=== PATIENT | female | born 1980 | race Caucasian/White ===

== ENCOUNTER 2019-07-08 03:46 | Emergency (ER) | payer OTHER, SELFPAY ==
[2019-07-08 04:02] VITALS: BP 113/73; PULSE 102; RESP 17; TEMP 36.7; O2SAT 93; BMI 28.3
--- NOTE | 2019-07-08 04:07 | ED_ITS ---
Entered by Gladys Cartagena, acting as scribe for Teresita Luke HPI - Alcohol General: Chief Complaint: Seizure Stated Complaint: SEIZURE/ETOH Time Seen by Provider: 07/08/19 04:00 Source: patient and EMS Mode of arrival: EMS History of Present Illness: HPI narrative: 38 y/o female presents to the ED for possible seizure. EMS states she has a hx of seizures and has not been taking her medications for the past few months due to monetary issues. 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 Pt is a very poor historian and cannot even recall how tall she is. She does not know what happened or why she is here. When asked if she fell or had a seizure, pt states she does not know. All she knows is that she thinks she was sitting on a bar stool and then she was on the floor. Pt is very emotional and reports alot of home life issues. She denies SI/HI at this time. 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 Chronic alcohol use: Yes Associated symptoms: Deny abdominal pain, diaphoresis, hematemesis, melena, nausea, syncope or vomiting Review of Systems General: Reports: other (negative unless marked) Const: Denies: fever, chills, body aches, fatigue, malaise or diaphoresis Eyes: Denies: change in vision or blurry vision ENMT: Denies: throat pain, painful swallowing, hoarseness, ear pain, ear discharge, Change in hearing or nasal discharge Card: Denies: chest pain, palpitations, irregular heart rhythm, syncope, pre- syncope, shortness of breath on exertion or shortness of breath when lying down Resp: Denies: shortness of breath, productive cough, non-productive cough, wheezing, coughing up blood or chest congestion GI: Denies: abdominal pain, nausea, vomiting, vomiting blood, coffee grounds in vomit, diarrhea, constipation, cramping, blood in stool or black tarry stool : Denies: flank pain, painful urination, urinary frequency, urinary urgency, decreased urine ouput, urinary incontinence or blood in urine Musc: Denies: neck pain, back pain, extremity pain, extremity swelling, joint pain, joint swelling, joint warmth or joint stiffness Skin/Breast: Denies: rash, skin tenderness or yellow skin Endo: Denies: excessive thirst, tired all the time, cold intolerance, excessive sweating, flushing or hot flashes Marcelo/Lymph: Denies: easy bruising, easy bleeding, petechiae or enlarged lymph nodes All/Imm: Denies: hives, throat swelling, tongue swelling, facial swelling or acute wheezing PFSH ED PFSH: Social History Smoking and tobacco status: current every day smoker Alcohol intake: never Physical Exam Const: ORIENTATION/CONSCIOUSNESS: Yes awake HENMT: COMMON NORMALS: normocephalic, head/scalp atraumatic, hearing grossly normal bilaterally, external ears normal, EAC's normal, external nose normal and moist oral mucous membranes HEAD & SCALP: normal to inspection, normocephalic and atraumatic FACE & SINUS: normal facial exam and face symmetric NOSE: external nose normal and nares normal EXTERNAL EAR: Yes external ears normal EXTERNAL AUDITORY CANAL: EAC's normal MOUTH: oral and palatal mucosa normal and tongue normal Eye: COMMON NORMALS: PERRL, EOMs intact bilaterally, conjunctivae normal and no scleral icterus GENERAL EYE: normal appearance of both eyes and normal light reflex CONJUNCTIVA: Yes conjunctivae normal SCLERA: sclerae normal CORNEA: Yes corneas normal PUPIL: Yes PERRL DIRECT OPHTHALMOSCOPY: Yes normal light reflex Neck/C-Spine: COMMON NORMALS: full ROM, no lymphadenopathy, supple, no meningeal signs and no JVD GENERAL: Yes normal visual inspection and Yes trachea midline CERVICAL SPINE: Yes cervical ROM normal Chest: COMMONS NORMALS: inspection of chest normal and palpation of chest normal Resp: COMMON NORMALS: normal respiratory effort, no retractions, no use of accessory muscles and clear to auscultation bilaterally EFFORT & INSPECTION: Yes able to speak in complete sentences AUSCULTATION: clear to auscultation bilaterally Cardio: COMMON NORMALS: no JVD, regular rate, regular rhythm, S1 normal heart sound, S2 normal heart sound, no gallops, no clicks, no murmurs and no rub JUGULAR VENOUS DISTENTION: no JVD RATE: regular rate RHYTHM: regular rhythm HEART SOUNDS: S1 normal and S2 normal GI: COMMON NORMALS: soft to palpation, non-tender, no hepatosplenomegaly and no masses INSPECTION: Yes normal to inspection PALPATION: Yes soft and Yes no hepatosplenomegaly : COMMON NORMALS: Yes no CVA tenderness BLADDER/KIDNEY EXAM: Yes no CVA tenderness Back/Pelvis: COMMON NORMALS: no CVA tenderness, thoracic and lumbar spine normal to inspection, no thoracic nor lumbar tenderness and thoraco-lumbar ROM normal Extremity: COMMON NORMALS: normal to inspection, full ROM, normal capillary refill, no joint enlargement, no clubbing, cyanosis or edema and no calf tenderness Neuro: COMMON NORMALS: no sensory deficits noted MENINGEAL SIGNS: Yes no meningeal signs Skin: COMMON NORMALS: no rashes or lesions noted, skin turgor normal, no jaundice, no petechiae and no mottling GENERAL SKIN EXAM: no rashes or lesions noted and turgor normal Course Vital Signs: Vital signs: Vital Signs Temperature 100.5 F H 07/08/19 05:39 Pulse Rate 102 H 07/08/19 04:02 Respiratory Rate 17 07/08/19 04:02 Blood Pressure 113/73 07/08/19 04:02 Pulse Oximetry 93 07/08/19 04:02 MDM - Alcohol MDM Narrative: Medical decision making narrative: Tatum comes in very depressed and has been drinking. She has significant marital problems and financial problems. She wants to get help. She is not suicidal or homicidal. I reviewed the case in full with Dr. Schuster he is agreeable to admission. I will go ahead and admit her to the [facility] for stabilization. Lab Data: Labs: Lab Results 07/08/19 07/08/19 07/08/19 Range/Units 04:00 04:00 04:50 WBC (4.0-10.0) 10^3/ uL RBC (4.1-5.3) 10^6/u L Hgb (11.5-15.3) g/dL Hct (37.0-47.0) % MCV (81-99) fL MCH (28.0-34.0) pg MCHC (30.0-36.0) g/dL RDW (12.1-15.1) % Plt Count (130-400) 10^3/c mm MPV (7.4-10.4) fL Neut % (Auto) % Lymph % (Auto) % [place] % (Auto) % Eos % (Auto) % Baso % (Auto) % Neut # (Auto) (1.8-7.7) 10^3/u L Lymph # (Auto) (0.8-4.8) 10^3/u L Cabell # (Auto) (0.2-0.9) 10^3/u L Eos # (Auto) (0.0-0.8) 10^3/u L Baso # (Auto) (0.0-0.1) 10^3/u L Nucleated RBC % (a uto) % Nucleated RBCs # /100WBC Sodium 143 (136-145) mmol/L Potassium 3.9 (3.5-5.1) mmol/L Chloride 105 (98-107) mmol/L Carbon Dioxide 20 L (22-29) mmol/L Anion Gap 21.9 H (5-19) BUN 7 (6-20) mg/dL Creatinine 0.5 (0.5-0.9) mg/dL GFR Calculation 138.1 H (90-130) mL/min Glucose 139 H (65-115) mg/dL Calcium 9.6 (8.5-10.5) mg/dL Magnesium 2.3 (1.7-2.3) mg/dL Total Bilirubin 0.2 (0.15-1.2) mg/dL AST 9 (0-32) U/L ALT 9 (0-33) U/L Alkaline Phosphata se 80 (35-105) IU/L Total Protein 7.8 (6.6-8.7) g/dL Albumin 4.0 (3.5-5.2) g/dL Globulin 3.8 (1.3-4.6) g/dL HCG, Qual (Negative) Urine Color Yellow (Yellow) Urine Appearance Hazy A (CLEAR) Urine pH 6 (5-7) Ur Specific Gravit y 1.005 (1.005-1.030) Urine Protein Neg (Negative) Urine Glucose (UA) Norm (Normal) Urine Ketones Negative (Negative) Urine Blood Neg (Negative) Urine Nitrate Negative (Negative) Urine Bilirubin Neg (NEGATIVE) Urine Urobilinogen Norm (Negative) mg/dL Ur Leukocyte Nupur ase Negative (Negative) Urine RBC 0-4 H (0-2) /hpf Urine WBC None (0-5) /hpf Ur Squamous Epith Cells 0-4 H (0-5) Urine Bacteria 2+ H (NONE) Urine Opiates Scre en Negative (Negative) ng/mL Ur Barbiturates Sc reen Negative (Negative) ng/mL Phenytoin (10-20) ug/mL Valproic Acid (50-100) mcg/mL Carbamazepine (4.0-12.0) ug/mL Ur Phencyclidine S crn Negative (Negative) ng/mL Ur Amphetamines Sc reen Negative (Negative) ng/mL U Benzodiazepines Scrn Negative (Negative) ng/mL [place] (0.6-1.2) mmol/L Urine Cocaine Scre en Negative (Negative) ng/mL U Marijuana (THC) Screen Negative (Negative) ng/mL Ethyl Alcohol 190 H (0-10) mg/dL 07/08/19 07/08/19 07/08/19 Range/Units 04:50 04:50 04:50 WBC (4.0-10.0) 10^3/ uL RBC (4.1-5.3) 10^6/u L Hgb (11.5-15.3) g/dL Hct (37.0-47.0) % MCV (81-99) fL MCH (28.0-34.0) pg MCHC (30.0-36.0) g/dL RDW (12.1-15.1) % Plt Count (130-400) 10^3/c mm MPV (7.4-10.4) fL Neut % (Auto) % Lymph % (Auto) % Cabell % (Auto) % Eos % (Auto) % Baso % (Auto) % Neut # (Auto) (1.8-7.7) 10^3/u L Lymph # (Auto) (0.8-4.8) 10^3/u L Cabell # (Auto) (0.2-0.9) 10^3/u L Eos # (Auto) (0.0-0.8) 10^3/u L Baso # (Auto) (0.0-0.1) 10^3/u L Nucleated RBC % (a uto) % Nucleated RBCs # /100WBC Sodium (136-145) mmol/L Potassium (3.5-5.1) mmol/L Chloride (98-107) mmol/L Carbon Dioxide (22-29) mmol/L Anion Gap (5-19) BUN (6-20) mg/dL Creatinine (0.5-0.9) mg/dL GFR Calculation (90-130) mL/min Glucose (65-115) mg/dL Calcium (8.5-10.5) mg/dL Magnesium (1.7-2.3) mg/dL Total Bilirubin (0.15-1.2) mg/dL AST (0-32) U/L ALT (0-33) U/L Alkaline Phosphata se (35-105) IU/L Total Protein (6.6-8.7) g/dL Albumin (3.5-5.2) g/dL Globulin (1.3-4.6) g/dL HCG, Qual Negative (Negative) Urine Color (Yellow) Urine Appearance (CLEAR) Urine pH (5-7) Ur Specific Gravit y (1.005-1.030) Urine Protein (Negative) Urine Glucose (UA) (Normal) Urine Ketones (Negative) Urine Blood (Negative) Urine Nitrate (Negative) Urine Bilirubin (NEGATIVE) Urine Urobilinogen (Negative) mg/dL Ur Leukocyte Nupur ase (Negative) Urine RBC (0-2) /hpf Urine WBC (0-5) /hpf Ur Squamous Epith Cells (0-5) Urine Bacteria (NONE) Urine Opiates Scre en (Negative) ng/mL Ur Barbiturates Sc reen (Negative) ng/mL Phenytoin 1.0 L (10-20) ug/mL Valproic Acid 2.8 L (50-100) mcg/mL Carbamazepine 2.0 L (4.0-12.0) ug/mL Ur Phencyclidine S crn (Negative) ng/mL Ur Amphetamines Sc reen (Negative) ng/mL U Benzodiazepines Scrn (Negative) ng/mL [place] 0.1 L (0.6-1.2) mmol/L Urine Cocaine Scre en (Negative) ng/mL U Marijuana (THC) Screen (Negative) ng/mL Ethyl Alcohol (0-10) mg/dL 07/08/19 Range/Units 05:39 WBC 9.4 (4.0-10.0) 10^3/ uL RBC 4.99 (4.1-5.3) 10^6/u L Hgb 13.4 (11.5-15.3) g/dL Hct 41.5 (37.0-47.0) % MCV 83.2 (81-99) fL MCH 26.9 L (28.0-34.0) pg MCHC 32.3 (30.0-36.0) g/dL RDW 17.1 H (12.1-15.1) % Plt Count 300 (130-400) 10^3/c mm MPV 10.9 H (7.4-10.4) fL Neut % (Auto) 56.4 % Lymph % (Auto) 36.8 % Cabell % (Auto) 4.9 % Eos % (Auto) 1.3 % Baso % (Auto) 0.3 % Neut # (Auto) 5.3 (1.8-7.7) 10^3/u L Lymph # (Auto) 3.5 (0.8-4.8) 10^3/u L Cabell # (Auto) 0.5 (0.2-0.9) 10^3/u L Eos # (Auto) 0.1 (0.0-0.8) 10^3/u L Baso # (Auto) 0.0 (0.0-0.1) 10^3/u L Nucleated RBC % (a uto) 0 % Nucleated RBCs # 0.0 /100WBC Sodium (136-145) mmol/L Potassium (3.5-5.1) mmol/L Chloride (98-107) mmol/L Carbon Dioxide (22-29) mmol/L Anion Gap (5-19) BUN (6-20) mg/dL Creatinine (0.5-0.9) mg/dL GFR Calculation (90-130) mL/min Glucose (65-115) mg/dL Calcium (8.5-10.5) mg/dL Magnesium (1.7-2.3) mg/dL Total Bilirubin (0.15-1.2) mg/dL AST (0-32) U/L ALT (0-33) U/L Alkaline Phosphata se (35-105) IU/L Total Protein (6.6-8.7) g/dL Albumin (3.5-5.2) g/dL Globulin (1.3-4.6) g/dL HCG, Qual (Negative) Urine Color (Yellow) Urine Appearance (CLEAR) Urine pH (5-7) Ur Specific Gravit y (1.005-1.030) Urine Protein (Negative) Urine Glucose (UA) (Normal) Urine Ketones (Negative) Urine Blood (Negative) Urine Nitrate (Negative) Urine Bilirubin (NEGATIVE) Urine Urobilinogen (Negative) mg/dL Ur Leukocyte Nupur ase (Negative) Urine RBC (0-2) /hpf Urine WBC (0-5) /hpf Ur Squamous Epith Cells (0-5) Urine Bacteria (NONE) Urine Opiates Scre en (Negative) ng/mL Ur Barbiturates Sc reen (Negative) ng/mL Phenytoin (10-20) ug/mL Valproic Acid (50-100) mcg/mL Carbamazepine (4.0-12.0) ug/mL Ur Phencyclidine S crn (Negative) ng/mL Ur Amphetamines Sc reen (Negative) ng/mL U Benzodiazepines Scrn (Negative) ng/mL [place] (0.6-1.2) mmol/L Urine Cocaine Scre en (Negative) ng/mL U Marijuana (THC) Screen (Negative) ng/mL Ethyl Alcohol (0-10) mg/dL Imaging Data^: CXR: My impression: No acute cardiopulmonary findings. CT Spine: Radiologist's impression: [place] [address] CT Scan Report Signed Patient: Tatum Francois #: [id number] : 1980Acct#:[id number] Age/Sex: 38 / FADM Date: 07/08/19 Loc: ERRoom/Bed: Attending Dr: Ordering Provider/Ordering MD: Teresita Luke DO Date of Service: 07/08/19 Procedure(s): CT cervical spin wo con* [id number] Accession Number(s): [id number] Report Number: [id number] PROCEDURE INFORMATION: Exam: CT Cervical Spine Without Contrast Exam date and time: 07/08/2019 4:10 AM Age: 38 years old Clinical indication: Neck pain TECHNIQUE: Imaging protocol: Computed tomography images of the cervical spine without contrast. Total DLP: 875.26 mGy-cm Radiation optimization: All CT scans at this facility use at least one of these dose optimization techniques: automated exposure control; mA and/or kV adjustment per patient size (includes targeted exams where dose is matched to clinical indication); or iterative reconstruction. COMPARISON: No relevant prior studies available. FINDINGS: Vertebrae: No fracture or malalignment. Minimal mid cervical kyphosis. Discs/Spinal canal/Neural foramina: No disc narrowing or canal stenosis. Degeneration of the right C5-C6 uncovertebral joint causing moderate right foraminal stenosis. Soft tissues: Unremarkable. Sinuses: Slightly nodular appearance of the mild mucosal thickening in the inferior maxillary sinuses. Other sinus disease detailed in the head CT report. Lungs: Patchy minimal haziness in the lung apices evident despite motion, questionably due to hypoaeration. CT/CT cervical spin wo con* [id number] IMPRESSION: No acute bony disease. Right uncovertebral joint degeneration at C5-C6 causing moderate right foraminal stenosis. Other findings detailed above. Radiation Dose CTDIVOL = (mGy): DLP = 875.26 (mGy-cm) CT Head: Radiologist's impression: [place] [address] CT Scan Report Signed Patient: Tatum Francois #: [id number] : 1980Acct#:[id number] Age/Sex: 38 / FADM Date: 07/08/19 Loc: ERRoom/Bed: Attending Dr: Ordering Provider/Ordering MD: Teresita Luke DO Date of Service: 07/08/19 Procedure(s): CT head wo con* [id number] Accession Number(s): [id number] Report Number: [id number] PROCEDURE INFORMATION: Exam: CT Head Without Contrast Exam date and time: 07/08/2019 4:10 AM Age: 38 years old Clinical indication: Pain; Altered mental status/memory loss; Confusion or disorientation; Headache not specified; Additional info: Vivas/ams TECHNIQUE: Imaging protocol: Computed tomography of the head without contrast. Total DLP: 1800.65 mGy-cm Radiation optimization: All CT scans at this facility use at least one of these dose optimization techniques: automated exposure control; mA and/or kV adjustment per patient size (includes targeted exams where dose is matched to clinical indication); or iterative reconstruction. COMPARISON: No relevant prior studies available. FINDINGS: Limitations: Motion artifacts. Brain: No suggestion of edema in the brain. One very small calcification in the left frontal white matter. No positive mass effect around the calcification or elsewhere. No hemorrhage. Ventricles: No ventriculomegaly. Bones/joints: Unremarkable. No acute fracture. Sinuses: Small mucous retention cyst in the left maxillary sinus. Mucosal thickening in several paranasal sinuses. No air-fluid levels. Mastoid air cells: Unremarkable mastoids. Soft tissues: Unremarkable. CT/CT head wo con* [id number] IMPRESSION: No acute findings. Nonspecific very small calcification in the left frontal white matter. Chronic sinus disease detailed above. Radiation Dose CTDIVOL = (mGy): DLP = 1800.65 (mGy-cm) Discharge Plan Discharge Patient Disposition: Placed in Observation Admit Provider: Francisco Schuster Clinical Impression: Depression, Alcohol intoxication Condition: Stable Interventions: ED Discharge Assessment Last Done: 07/08/19 06:28 Coding Level of Care Code ED Spout Liner for Chg Fwd Exam Comprehensive The documentation recorded by the Osiel salazar Ashley, accurately reflects the service I personally performed and the decisions made by Ti love Eli N Jul 08, 2019 03:46
--- NOTE | 2019-07-08 04:09 | XR_ITS ---
WS: [id number] Portable AP upright chest, 07/08/2019 Clinical Data: cough Comparison: Portable chest, 09/20/2017. Findings: No nodules, masses or effusions are seen. The heart is normal. The pulmonary vascularity is not increased. No pneumonia or pneumothorax is seen. XR/XR chest 1V portable [id number] Impression: Negative chest.
[2019-07-08] MEDS: folic acid 1 MG, multivitamin inj 10 ML, thiamine 100 MG in sodium chloride 0.9% 1,000 ML 252.8 MG IV (04:30)
[2019-07-08 05:00] LABS: Bilirubin Urine Neg (NEGATIVE); Blood Urine Neg (Negative); Glucose Urine UA Norm (Normal); Ketones Urine Negative (Negative); Leukocyte Esterase Urine Negative (Negative); Nitrate Urine Negative (Negative); Protein Urine Neg (Negative); Specific Gravity, Urine 1.005 (1.005-1.030); Urine Appearance Hazy (CLEAR); Urine Color Yellow (Yellow); Urobilinogen Urine Norm (Negative); pH Urine 6 (5-7)
[2019-07-08 05:01] LABS: Add Urine Culture? Yes; Bacteria Urine 2+; RBC Urine 0-4 /hpf (0-2); Squamous Epithelial Cell Urine 0-4 (0-5)
[2019-07-08 05:15] LABS: Amphetamines Screen Urine Negative (Negative); Barbiturates Screen Urine Negative (Negative); Benzodiazepines Screen Urine Negative (Negative); Cocaine Screen Urine Negative (Negative); Opiate Screen Urine Negative (Negative); PCP Screen Urine Negative (Negative); THC Screen Urine Negative (Negative)
[2019-07-08 05:18] LABS: HCG, Serum Qual Negative (Negative)
[2019-07-08 05:21] LABS: Alanine Aminotransferase 9 U/L (0-33); Alcohol Level 190 mg/dL (0-10); Alkaline Phosphatase 80 IU/L (35-105); Anion Gap 21.9 (5-19); Aspartate Amino Transferase 9 U/L (0-32); Blood Urea Nitrogen 7 mg/dL (6-20); Calcium 9.6 mg/dL (8.5-10.5); Carbon Dioxide 20 mmol/L (22-29); Chloride 105 mmol/L (98-107); Creatinine Clr Calc Pharmacy 145.6319; Globulin 3.8 g/dL (1.3-4.6); Glomerular Filtration Rate 138.1 mL/min (90-130); Glucose 139 mg/dL (65-115); Magnesium 2.3 mg/dL (1.7-2.3); Potassium 3.9 mmol/L (3.5-5.1); Sodium 143 mmol/L (136-145); Total Bilirubin 0.2 mg/dL (0.15-1.2); Total Protein 7.8 g/dL (6.6-8.7)
[2019-07-08 05:39] VITALS: TEMP 38.1
[2019-07-08 06:00] LABS: Basophils % 0.3 %; Eosinophils # 0.1 10^3/uL (0.0-0.8); Eosinophils % 1.3 %; Hematocrit 41.5 % (37.0-47.0); Hemoglobin 13.4 g/dL (11.5-15.3); Lymphocytes # 3.5 10^3/uL (0.8-4.8); Lymphocytes % 36.8 %; Mean Corpuscular HGB Conc 32.3 g/dL (30.0-36.0); Mean Corpuscular Hemoglobin 26.9 pg (28.0-34.0); Mean Corpuscular Volume 83.2 fL (81-99); Mean Platelet Volume 10.9 fL (7.4-10.4); Monocytes # 0.5 10^3/uL (0.2-0.9); Monocytes % 4.9 %; Neutrophils # 5.3 10^3/uL (1.8-7.7); Neutrophils % 56.4 %; Nucleated Red Blood Cells % 0 %; Platelet Count 300 10^3/cmm (130-400); Red Blood Count 4.99 10^6/uL (4.1-5.3); Red Cell Distribution Width 17.1 % (12.1-15.1); White Blood Count 9.4 10^3/uL (4.0-10.0)
[2019-07-08 06:40] LABS: Acetaminophen < 5.0 ug/mL (10-30); Salicylate < 0.3 mg/dL (3-10)
[2019-07-08 06:41] LABS: Carbamazepine Tegretol < 2.0 ug/mL (4.0-12.0); Valproic Acid Level < 2.8 mcg/mL (50-100)
--- NOTE | 2019-07-08 06:46 | PC.NURSE ---
Pt room empty when security attempted to transfer pt to NPU. After searching ED, security found pt on camera leaving the room at 0619 and in the parking lot @ 0620. Further inspection of pt's room reveals pt had pulled IV out. NPU notified of pt elopement
[2019-07-08 06:50] LABS: Lithium < 0.1 mmol/L (0.6-1.2)
== END 2019-07-08 06:20 | disposition home or self-care (01) | DRG 897 ==
LOC: ER 06:28 → NP 06:29
PROVIDERS: Emergency Provider Emergency Medicine; Family Provider Family Medicine; PCP Family Medicine; Visit Provider Psychiatry & Neurology Psychiatry
DX: F10.129 Alcohol abuse with intoxication, unspecified (principal); G40.909 Epilepsy, unspecified, not intractable, without status epilepticus; F17.210 Nicotine dependence, cigarettes, uncomplicated; F32.9 Major depressive disorder, single episode, unspecified; Y90.6 Blood alcohol level of 120-199 mg/100 ml
CPT/HCPCS: 70450; 71045; 72125; 80053; 80156; 80164; 80178; 80185; 80307; 81001; 83735; 84703; 85025; 87086; 96365; 96366; 99283; 99284; J1953; J3411; J3490; J7030

== ENCOUNTER 2020-02-01 20:51 | Emergency (ER) | payer SELFPAY ==
[2020-02-01 21:01] VITALS: BP 143/92; PULSE 93; RESP 18; TEMP 36.5; O2SAT 96; BMI 29.2
--- NOTE | 2020-02-01 21:07 | XRR_ITS ---
PROCEDURE INFORMATION: Exam: XR Right Knee Exam date and time: 02/01/2020 9:29 PM Age: 39 years old Clinical indication: Injury or trauma; Fall; Initial encounter; Blunt trauma; Injury date: 02/01/20; Injury details: Fell while skating, right knee pain; Additional info: Fall with pain TECHNIQUE: Imaging protocol: XR Right knee. Views: Frontal, lateral, and oblique views. COMPARISON: No relevant prior studies available. FINDINGS: Bones/joints: Moderate knee joint effusion. No acute bony abnormality identified. Soft tissues: A quadriceps tendon enthesis of the superior pole of the patella is present. XR/XR knee RT 3V* [id number] IMPRESSION: 1. Moderate knee joint effusion. 2. No acute bony injury identified.
--- NOTE | 2020-02-01 21:08 | W.ED.FALL ---
HPI - Fall General: Chief Complaint: Fall Stated Complaint: FALL, LEG PAIN Time Seen by Provider: 02/01/20 21:02 History of Present Illness: HPI Narrative: Patient is a 39-year-old female comes to the ED with injury to right knee. Patient says injury occurred just prior to arrival. Patient was using roller skates and fell and her right knee hit the ground. Caused an abrasion of the skin on her right knee. She also feels some pain in the back of her knee when she bears weight on it. Pain is is rated a 5 out of 10 currently. Patient is able to ambulate. She says her last tetanus shot was within the last 5 years. Denies any other injury or trauma after fall. Patient has not taken any Tylenol or ibuprofen before arriving to the ED. Patient says she does not want any pain meds while here in the ED. Associated symptoms-after fall: Denies abdominal pain, chest pain, headache(s), hematuria or neck pain Review of Systems Const: Denies: fever(s), chills or fatigue Eyes: Denies: change in vision or eye discomfort ENMT: Denies: throat pain, odynophagia, nasal discharge or nasal congestion Card: Denies: chest pain, palpitations, edema, swelling of feet/ankles, dyspnea on exertion or orthopnea Resp: Denies: dyspnea, productive cough or non-productive cough GI: Denies: abdominal pain, nausea, vomiting, diarrhea, constipation or hematochezia : Denies: flank pain, dysuria or hematuria Musc: Reports: extremity pain (Right knee pain); Denies: neck pain, back pain or extremity swelling Skin/Breast: Reports: new lesions (Superficial abrasion on right knee.); Denies: rash Neuro: Denies: headache(s), numbness in extremities or weakness in extremities [facility] ED PFSH: Social History Smoking and tobacco status: current every day smoker Alcohol intake: never Physical Exam Const: COMMON NORMALS: no acute distress, patient oriented x3, healthy appearing and alert GENERAL APPEARANCE: cooperative and comfortable HENMT: COMMON NORMALS: normocephalic HEAD & SCALP: normocephalic MOUTH: Normal oral and palatal mucosa present THROAT: posterior oropharynx normal and uvula midline Neck/C-Spine: COMMON NORMALS: supple GENERAL: Yes normal visual inspection Resp: COMMON NORMALS: normal respiratory effort, No retractions, No use of accessory muscles and clear to auscultation bilaterally AUSCULTATION: clear to auscultation bilaterally Cardio: COMMON NORMALS: regular rate, regular rhythm, S1 normal heart sound present, S2 normal heart sound present, No gallops present (Cardio), No clicks present (Cardio), No murmurs present (Cardio) and Peripheral pulses 2+ throughout RATE: regular rate RHYTHM: regular rhythm HEART SOUNDS: S1 normal heart sound present and S2 normal heart sound present PERIPHERAL PULSES: Peripheral pulses 2+ throughout GI: COMMON NORMALS: Normal to inspection, nondistended, normoactive bowel sounds present, Soft to palpation, non-tender and no masses PALPATION: Yes Soft to palpation : COMMON NORMALS: Yes no CVA tenderness BLADDER/KIDNEY EXAM: Yes no CVA tenderness Back/Pelvis: COMMON NORMALS: no CVA tenderness Extremity: GENERAL: Yes normal exam except as noted RIGHT LOWER EXTREMITY: Yes knee joint Right knee: Yes inspection ( superficial abrasion on right knee.), Yes palpation (Pain upon palpation on the posterior aspect of knee.), Yes ROM (Fall with pain.) and Yes neurovascular exam (Intact, pedal pulse 2+.) Neuro: COMMON NORMALS: patient oriented x3 and moves all extremities SENSORIUM/ORIENTATION: Yes alert Skin: GENERAL SKIN EXAM: dry skin TRAUMA: abrasion (Superficial abrasion on right knee knee.) Course Vital Signs: Vital signs: Vital Signs Temperature 97.7 F 02/01/20 21:01 Pulse Rate 88 02/01/20 22:18 Respiratory Rate 18 02/01/20 22:18 Blood Pressure 125/63 02/01/20 22:18 Pulse Oximetry 97 02/01/20 22:18 MDM - Fall MDM Narrative: Medical decision making narrative: Patient is a 39-year-old female comes to the ED with fall and injury to her right knee. Patient has a superficial abrasion to right knee and some tenderness upon palpation to the posterior aspect of right knee. Patient is able to ambulate and bear weight on right knee. Pedal pulse 2+ and neurovascular intact distally to injury. Right knee x-ray showed no acute findings or fractures seen. Patient was given crutches and told to nonweightbearing on right knee for the next couple days to help with healing, then start to weight-bear as tolerated and increase activity. Abrasion was irrigated cleaned and bandaged by nurse before discharge. Patient has had tetanus within the last 5 years so she did not get an updated tetanus shot while here in the ED. She was told to follow-up with her PCP within the next week to reevaluate right knee pain. Rest ice elevate and take ibuprofen for pain. Return to ED precautions given. Patient understood and agreed with plan. Imaging Data^: Xray Ortho: Attestation: I personally reviewed and interpreted this imaging study as follows: My impression: Right knee x-ray-no acute fractures or findings seen. Discharge Plan Discharge Patient Disposition: Home Clinical Impression: Posterior right knee pain, Abrasion Condition: Stable Prescriptions: No Action No Known Home Medications RF: 0 Discharge Orders: Discharge Order (Routine); Ordered 02/01/20 Ordered By: Sam Brown Referrals: Elaina Swift MD [Primary Care Provider] - Discharge Diet: Regular Discharge Activity: Increase activity as tolerated, Limit activity as instructed and Use walker/crutches as instructed Patient Instructions: Abrasion (ED), Knee Pain (ED) Activity Restrictions/Additional Instructions: Follow-up with medical provider as directed in about a week. Use crutches and no weightbearing for the next couple days. Then slowly start increasing activity and weightbearing as tolerated. Apply cold pack on need help with symptoms and take ibuprofen for pain and inflammation. Keep abrasion clean and apply triple antibiotic ointment and bandage daily. Return to the ER or your medical provider if condition worsens. Please read and understand discharge instructions. If any questions, please ask. Discharge Date/Time: 02/01/20 22:20 Coding Level of Care Code ED Respiratory Therapy Instructor for [place] Fwd Exam Comprehensive
--- NOTE | 2020-02-01 22:05 | PC.NURSE ---
cleaned wounds with sterile water and applied a telfa dressing to R knee, pt tolerated procedure well.
[2020-02-01 22:18] VITALS: BP 125/63; PULSE 88; RESP 18; O2SAT 97
== END 2020-02-01 22:20 | disposition home or self-care (01) ==
PROVIDERS: Emergency Provider Physician Assistant; PCP Family Medicine
DX: S80.211A Abrasion, right knee, initial encounter (principal); M25.561 Pain in right knee; W18.39XA Other fall on same level, initial encounter; Y93.51 Activity, roller skating (inline) and skateboarding; F17.210 Nicotine dependence, cigarettes, uncomplicated
CPT/HCPCS: 12345; 73562; 99282; 99283; E0114

== ENCOUNTER 2020-05-12 23:03 | Emergency (ER) | payer MEDICAID, SELFPAY ==
[2020-05-12 23:05] VITALS: BP 121/87; PULSE 82; RESP 18; TEMP 36.8; O2SAT 94; BMI 29.7
[2020-05-12 23:13] VITALS: BP 121/87; PULSE 99; RESP 16; O2SAT 97
--- NOTE | 2020-05-12 23:13 | CTR_ITS ---
PROCEDURE INFORMATION: Exam: CT Head Without Contrast Exam date and time: 05/12/2020 11:25 PM Age: 39 years old Clinical indication: Altered mental status/memory loss; Patient HX: Siezure activity. Patient inconsolable. Best exam obtained. ; Additional info: Chris TECHNIQUE: Imaging protocol: Computed tomography of the head without contrast. Radiation optimization: All CT scans at this facility use at least one of these dose optimization techniques: automated exposure control; mA and/or kV adjustment per patient size (includes targeted exams where dose is matched to clinical indication); or iterative reconstruction. COMPARISON: CT head wo con* [id number] 07/08/2019 5:17 AM RADIATION DOSE METRICS: Total DLP (mGy-cm): 1291.29 FINDINGS: Brain: Normal. No hemorrhage. Unremarkable white matter. No mass effect. Unchanged punctate calcification left frontal lobe deep white matter image 30. Cerebral ventricles: No ventriculomegaly. Bones/joints: Unremarkable. No acute fracture. Paranasal sinuses: Unchanged mucosal thickening in the sinuses. No fluid levels. Mastoid air cells: Visualized mastoid air cells are well aerated. Soft tissues: Unremarkable. CT/CT head wo con* [id number] IMPRESSION: No acute intracranial abnormality. Radiation Dose CTDIVOL = (mGy): DLP = 1291.29 (mGy-cm)
--- NOTE | 2020-05-12 23:13 | W.ED.SEIZURE ---
HPI - Seizure General: Chief Complaint: Seizure Stated Complaint: seizures Time Seen by Provider: 05/12/20 23:12 History of Present Illness: HPI Narrative: 39-year-old female, evidently with a history of seizure disorder. She presents after drinking alcohol tonight having several seizures at home. Her daughter called EMS. She reported that she had had 4-5 seizures before EMS arrived. EMS witnessed 2 of these stiffening movement type seizures in route here. She received 1 mg of Ativan with improvement for several minutes, however had another episode on arrival MD complaint: seizure Onset (ago): minute(s) Description of Episode: loss of consciousness Witnessed: Yes - by Bystander Seizure History: Yes Place: Home Possible Precipitating Event: alcohol withdrawal Associated symptoms: Reports confusion; Deny fever(s), rash or syncope Treatments prior to arrival: benzodiazepines Review of Systems General: Reports: ROS unobtainable due to mental status Const: Denies: fever(s) Card: Denies: syncope Neuro: Reports: confusion PFSH ED PFSH: Social History Smoking and tobacco status: current every day smoker Alcohol intake: never Physical Exam Const: EXAM LIMITATIONS: altered mental status GENERAL APPEARANCE: well developed, lethargic and odor of alcohol detected ORIENTATION/CONSCIOUSNESS: Yes oriented to person, Yes oriented to place and Yes lethargic HENMT: COMMON NORMALS: normocephalic, external ears normal and Normal external nose present HEAD & SCALP: normocephalic FACE & SINUS: normal facial exam NOSE: Normal external nose present and No nasal discharge present EXTERNAL EAR: Yes external ears normal MOUTH: tongue normal Eye: COMMON NORMALS: Equal, round and reactive pupils present, EOMs intact bilaterally and conjunctivae normal EYELID: eyelids normal CONJUNCTIVA: Yes conjunctivae normal PUPIL: Yes Equal, round and reactive pupils present Neck/C-Spine: GENERAL: No tracheal deviation CERVICAL SPINE: Yes normal cervical lordosis and No Cervical spine tenderness Chest: COMMONS NORMALS: normal inspection of the chest CHEST: No tenderness Resp: COMMON NORMALS: clear to auscultation bilaterally EFFORT & INSPECTION: No tachypneic, No respiratory distress, No retractions, No uses accessory muscles and No tracheal deviation AUSCULTATION: clear to auscultation bilaterally, no rhonchi, no wheezes and lung sounds not diminished Cardio: COMMON NORMALS: regular rhythm RATE: tachycardic RHYTHM: regular rhythm HEART SOUNDS: no murmurs PERIPHERAL PULSES: radial pulses present GI: INSPECTION: No abdominal distension AUSCULTATION: No Hyperactive bowel sounds present and No Hypoactive bowel sounds present PALPATION: No Guarding due to palpation present (GI) and No Rigid due to palpation PERCUSSION: no dullness to percussion and no tympanic to percussion Neuro: SENSORIUM/ORIENTATION: Yes oriented to person, Yes oriented to place and Yes lethargic Psych: SPEECH: Yes slurred ATTENTION/CONCENTRATION: Yes attention grossly impaired and Yes concentration grossly impaired Skin: COMMON NORMALS: no rashes or lesions noted GENERAL SKIN EXAM: no rashes or lesions noted Course Vital Signs: Vital signs: Vital Signs Temperature 98.2 F 05/12/20 23:05 Pulse Rate 104 H 05/13/20 03:45 Respiratory Rate 18 05/13/20 03:45 Blood Pressure 113/67 05/13/20 03:45 Pulse Oximetry 94 05/13/20 03:45 MDM - Seizure MDM Narrative: Medical decision making narrative: 39-year-old intoxicated female resents after several episodes of seizure. These are short-lived stiffening type partial seizures without gross tonic-clonic movement. She did not lose control of her bowel or bladder function. There is no tongue biting. Aside from the intoxication, her postictal state is not long. She received 2 mg of Versed IV on arrival with improvement. She was also given 1 g of Keppra infusion because of the history of multiple episodes prior to arrival. She has had no seizure activity since her infusion. CT of the head is normal. Alcohol level is 175. Other labs are benign. I suspect partial seizure versus pseudoseizure following withdrawal from alcohol intoxication. Lab Data: Labs: Lab Results 05/12/20 05/13/20 05/13/20 Range/Units 23:13 01:28 02:50 WBC 8.8 (4.0-10.0) 10^3/ uL RBC 4.79 (4.1-5.3) 10^6/u L Hgb 14.1 (11.5-15.3) g/dL Hct 43.5 (37.0-47.0) % MCV 90.8 (81-99) fL MCH 29.4 (28.0-34.0) pg MCHC 32.4 (30.0-36.0) g/dL RDW 13.3 (12.1-15.1) % Plt Count 258 (130-400) 10^3/c mm MPV 11.3 H (7.4-10.4) fL Neut % (Auto) 45.2 % Lymph % (Auto) 47.0 % Potter % (Auto) 5.4 % Eos % (Auto) 1.6 % Baso % (Auto) 0.7 % Neut # (Auto) 3.98 (1.8-7.7) 10^3/u L Lymph # (Auto) 4.1 (0.8-4.8) 10^3/u L Potter # (Auto) 0.5 (0.2-0.9) 10^3/u L Eos # (Auto) 0.1 (0.0-0.8) 10^3/u L Baso # (Auto) 0.1 (0.0-0.1) 10^3/u L Nucleated RBC % (a uto) 0 % Nucleated RBCs # 0.0 /100WBC Specimen Type Arterial Sample Site Radial, right ABG pH 7.32 L (7.35-7.45) ABG pCO2 48.9 H (35-45) mmHg ABG pO2 81.0 (80.0-100.0) mmH g ABG HCO3 25.2 (22-26) mmol/L ABG Base Excess -1.4 (-2.0-2.0) mmol/ L Vinay Test Pos Hematocrit 40.7 (37-47) % O2 Delivery Device Nc O2 Liters/Min 2.0 % Technical Writer And Editor ID [id number] Sodium 145 (136-145) mmol/L Potassium 3.7 (3.5-5.1) mmol/L Chloride 111 H (98-107) mmol/L Carbon Dioxide 25 (22-29) mmol/L Anion Gap 12.7 (5-19) BUN 6 (6-20) mg/dL Creatinine 0.4 L (0.5-0.9) mg/dL GFR Calculation 177.7 H (90-130) mL/min Glucose 111 (65-115) mg/dL Calculated Osmolal ity 298 H (285-295) mOsm/k g Calcium 7.7 L (8.5-10.5) mg/dL Phosphorus 4.7 H (2.5-4.5) mg/dL Magnesium 2.0 (1.7-2.3) mg/dL Total Bilirubin 0.2 (0.15-1.2) mg/dL AST 13 (0-32) U/L ALT 12 (0-33) U/L Alkaline Phosphata se 63 (35-105) IU/L Total Protein 6.7 (6.6-8.7) g/dL Albumin 3.6 (3.5-5.2) g/dL Globulin 3.1 (1.3-4.6) g/dL Ethyl Alcohol 175 H (0-10) mg/dL Discharge Plan Discharge Patient Disposition: Home Clinical Impression: Generalized seizure Alcohol intoxication Qualifiers: Complication of substance-induced condition: with unspecified complication Qualified Code(s): F10.929 - Alcohol use, unspecified with intoxication, unspecified Condition: Stable Prescriptions: No Action No Known Home Medications RF: 0 Discharge Orders: Discharge ED (Routine); Ordered 05/13/20 Ordered By: Everton Cavazos Referrals: Elaina Swift MD [Primary Care Provider] - 4-7 days Discharge Diet: Advance as tolerated Discharge Activity: Limit activity as instructed Patient Instructions: Alcohol Intoxication (ED), Alcohol Withdrawal (ED), Recurrent Seizures Adult (ED) Activity Restrictions/Additional Instructions: Abstain from alcohol. Return for repeated episodes of seizure, worsening mental status, fever, other concerning symptoms. You should not operate a car or heavy machinery until cleared by your neurologist. Coding Level of Care Code ED Lacing Operator for [place] Fwd Exam Comprehensive
[2020-05-12 23:15] VITALS: BP 121/87; PULSE 128; RESP 12; O2SAT 87
[2020-05-12] MEDS: midazolam 1 mg/mL INJ 2 mL 2 MG IVP (23:24)
[2020-05-12] MEDS: sodium chloride 0.9% 1,000 ML 999 ML IV (23:24)
[2020-05-12 23:41] VITALS: PULSE 110; O2SAT 94
[2020-05-12 23:45] VITALS: BP 113/62; PULSE 99; RESP 7; O2SAT 97
[2020-05-13] VITALS (22 sets, daily range): BP systolic 82–120; BP diastolic 52–75; PULSE 96–118; RESP 14–22; O2SAT 77–97
[2020-05-13 00:05] LABS: Basophils # 0.1 10^3/uL (0.0-0.1); Basophils % 0.7 %; Eosinophils # 0.1 10^3/uL (0.0-0.8); Eosinophils % 1.6 %; Hematocrit 43.5 % (37.0-47.0); Hemoglobin 14.1 g/dL (11.5-15.3); Lymphocytes # 4.1 10^3/uL (0.8-4.8); Mean Corpuscular HGB Conc 32.4 g/dL (30.0-36.0); Mean Corpuscular Hemoglobin 29.4 pg (28.0-34.0); Mean Corpuscular Volume 90.8 fL (81-99); Mean Platelet Volume 11.3 fL (7.4-10.4); Monocytes # 0.5 10^3/uL (0.2-0.9); Monocytes % 5.4 %; Neutrophils # 3.98 10^3/uL (1.8-7.7); Neutrophils % 45.2 %; Nucleated Red Blood Cells % 0 %; Platelet Count 258 10^3/cmm (130-400); Red Blood Count 4.79 10^6/uL (4.1-5.3); Red Cell Distribution Width 13.3 % (12.1-15.1); White Blood Count 8.8 10^3/uL (4.0-10.0)
[2020-05-13 01:51] LABS: Alanine Aminotransferase 12 U/L (0-33); Albumin Level 3.6 g/dL (3.5-5.2); Alcohol Level 175 mg/dL (0-10); Alkaline Phosphatase 63 IU/L (35-105); Anion Gap 12.7 (5-19); Aspartate Amino Transferase 13 U/L (0-32); Blood Urea Nitrogen 6 mg/dL (6-20); Calcium 7.7 mg/dL (8.5-10.5); Carbon Dioxide 25 mmol/L (22-29); Chloride 111 mmol/L (98-107); Globulin 3.1 g/dL (1.3-4.6); Glomerular Filtration Rate 177.7 mL/min (90-130); Glucose 111 mg/dL (65-115); Osmolality Calculated 298 mOsm/kg (285-295); Phosphorus 4.7 mg/dL (2.5-4.5); Potassium 3.7 mmol/L (3.5-5.1); Sodium 145 mmol/L (136-145); Total Bilirubin 0.2 mg/dL (0.15-1.2); Total Protein 6.7 g/dL (6.6-8.7)
[2020-05-13 03:11] LABS: ABG PCO2 48.9 mmHg (35-45); ABG PH Result 7.32 (7.35-7.45); Arterial Blood Gas Hematocrit 40.7 % (37-47); Base Excess ABG -1.4 mmol/L (-2.0-2.0); Blood Gas Allen Test Pos; Blood Gas Sample Site Radial, right; Blood Gas Sample Type Arterial; HCO3 ABG 25.2 mmol/L (22-26); Oxygen Device NC
== END 2020-05-13 05:41 | disposition home or self-care (01) ==
PROVIDERS: Emergency Provider Emergency Medicine; PCP Family Medicine
DX: G40.409 Other generalized epilepsy and epileptic syndromes, not intractable, without status epilepticus (principal); F10.929 Alcohol use, unspecified with intoxication, unspecified; F17.210 Nicotine dependence, cigarettes, uncomplicated; Y90.6 Blood alcohol level of 120-199 mg/100 ml
CPT/HCPCS: 12345; 36415; 36600; 70450; 80053; 80307; 82803; 83735; 84100; 85025; 96361; 96374; 96375; 96376; 99284; J1953; J2250; J7030